=== PATIENT | female | born 1965 | race Asian ===

== ENCOUNTER 2017-05-11 21:44 | Emergency (ER) | payer OTHER ==
[2017-05-11] MEDS: IBUPROFEN 800 MG TAB PO (23:17)
== END 2017-05-11 23:57 | disposition home or self-care (01) ==
LOC: FTE 23:57
DX: S80.211A Abrasion, right knee, initial encounter (principal); F17.210 Nicotine dependence, cigarettes, uncomplicated; H81.49 Vertigo of central origin, unspecified ear; W01.0XXA Fall on same level from slipping, tripping and stumbling without subsequent striking against object, initial encounter; Y92.9 Unspecified place or not applicable
CPT/HCPCS: 99283; Z7502

== ENCOUNTER 2018-03-06 11:59 | Emergency (ER) | payer MEDICAID, OTHER | END 2018-03-06 15:17 | disposition home or self-care (01) | LOC: E/R 11:59 | DX: R42 Dizziness and giddiness (principal); R51 Headache; F17.210 Nicotine dependence, cigarettes, uncomplicated | CPT/HCPCS: 99282; Z7502 ==